=== PATIENT | female | born 1985 | race Caucasian/White ===

== ENCOUNTER → 2023-05-26 14:48 | Outpatient (CLI) | payer OTHER, MEDICAID, SELFPAY ==
[2023-05-26 15:27] LABS: Add Manual Diff / Slide Review NO; Basophils Absolute Auto 100 /uL (0-100); Eosinophils Absolute Auto 100 /uL (0-450); Eosinophils Percent Auto 0.8 % (2-4); Hematocrit 36.8 % (36-46); Hemoglobin 12.7 g/dL (12.0-16.0); Lymphocytes Absolute Auto 2100 /uL (1100-4500); Lymphocytes Percent Auto 21.9 % (25-40); Mean Corpuscular HGB Conc 34.5 % (30-36); Mean Corpuscular Hemoglobin 29.8 PG (26-34); Mean Corpuscular Volume 86.2 fL (80-100); Monocytes Absolute Auto 700 /uL (0-900); Monocytes Percent Auto 7.4 % (3-14); Neutrophils Absolute Auto 6700 /uL (1500-7000); Neutrophils Percent Auto 68.9 % (50-75); Platelet Count 420 X10^3/uL (150-400); Red Blood Cell Count 4.27 X10^6/uL (4.0-5.2); Red Cell Distribution Width 13.9 % (11.6-14.8); White Blood Cell Count 9.6 X10^3/uL (4.5-11.0)
[2023-05-26 15:58] LABS: Alanine Aminotransferase 18 IU/L (<35); Albumin 4.1 g/dL (3.5-5.0); Albumin Globulin Ratio 1.2 (1.0-2.8); Alkaline Phosphatase 68 U/L (38-126); Aspartate Aminotransferase 24 IU/L (14-36); Bilirubin Total 0.5 mg/dL (0.2-1.3); Blood Urea Nitrogen 13 mg/dL (7-17); Calcium 9.2 mg/dL (8.4-10.2); Carbon Dioxide 28 mmol/L (22-32); Chloride 106 mmol/L (98-107); Estimated Glomerular Filt Rate > 60 mL/min (>60); Globulin 3.4 g/dL (1.7-4.1); Glucose 110 mg/dL (70-100); HEMOLYSIS < 15 (0-50); Potassium 4.1 mmol/L (3.4-5.1); Sodium 138 mmol/L (137-145); Total Protein 7.5 g/dL (6.3-8.2)
[2023-05-26 17:57] LABS: Vitamin D 25 Hydroxy (D3) 42.8 ng/mL (30.0-100.0)
[2023-05-27 21:17] LABS: Hemoglobin A1C% w Est Avg Glu 4.8 % (4.0-6.0)
== END ==
PROVIDERS: PCP Nurse Practitioner Family; Referring Provider Nurse Practitioner Family; Visit Provider Nurse Practitioner Family
DX: N92.0 Excessive and frequent menstruation with regular cycle (principal); F32.A Depression, unspecified; E66.9 Obesity, unspecified
CPT/HCPCS: 36415; 80053; 82306; 83036; 84443; 85025

== ENCOUNTER → 2024-10-10 15:36 | Outpatient (CLI) | payer OTHER, SELFPAY ==
[2024-10-14 06:39] LABS: Bact Vaginosis-Assoc. bacteria Low - 0 Score (.); Candida albicans, NAA Negative (Negative); Candida glabrata Negative (Negative); Trichomoas vaginalis by NAA Negative (Negative)
== END ==
PROVIDERS: PCP Nurse Practitioner Family; Visit Provider Nurse Practitioner Family
DX: N76.0 Acute vaginitis (principal)
CPT/HCPCS: 81514; 87480; 87491; 87510; 87591; 87798; 87801